=== PATIENT | female | born 1980 | race American Indian/Alaskan Native ===

== ENCOUNTER 2019-06-24 18:57 | Emergency (ER) | payer BC, OTHER ==
[2019-06-24 20:06] VITALS: BP 106/72
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
== END 2019-06-25 00:44 | disposition home or self-care (01) ==
LOC: ED 18:57
DX: M54.2 Cervicalgia (principal); M54.9 Dorsalgia, unspecified; V49.59XA Passenger injured in collision with other motor vehicles in traffic accident, initial encounter; Y93.89 Activity, other specified; Y92.410 Unspecified street and highway as the place of occurrence of the external cause; Y99.8 Other external cause status
CPT/HCPCS: 72040; 72070